=== PATIENT | male | born 1995 | race Asian ===

== ENCOUNTER 2018-09-26 02:04 | Emergency (ER) | payer OTHER ==
[~2018-09-26] VITALS: Ht 177.8 cm; Wt 98.4 kg
[2018-09-26 03:00] VITALS: BP 131/54
== END 2018-09-26 03:00 | disposition home or self-care (01) ==
LOC: ED 02:04
DX: S09.8XXA Other specified injuries of head, initial encounter (principal); V43.52XA Car driver injured in collision with other type car in traffic accident, initial encounter; Y93.I9 Activity, other involving external motion; Y92.413 State road as the place of occurrence of the external cause; Y99.8 Other external cause status

== ENCOUNTER 2019-12-24 02:24 | Emergency (ER) | payer OTHER ==
[~2019-12-24] VITALS: Ht 177.8 cm; Wt 102.1 kg
[2019-12-24 02:33] VITALS: Ht 177.8 cm; Wt 102.1 kg
[2019-12-24 03:32] VITALS: BP 133/88
== END 2019-12-24 03:32 | disposition home or self-care (01) ==
LOC: ED 02:24
DX: J20.9 Acute bronchitis, unspecified (principal)
CPT/HCPCS: J7512; Q0092

== ENCOUNTER 2020-11-11 18:20 | Emergency (ER) | payer OTHER ==
[~2020-11-11] VITALS: Ht 177.8 cm; Wt 77.6 kg
[2020-11-11 21:14] VITALS: BP 114/73
== END 2020-11-11 21:14 | disposition home or self-care (01) ==
LOC: ED 18:20
DX: M79.671 Pain in right foot (principal)